=== PATIENT | female | born 1985 | race Two or more races ===

== ENCOUNTER 2024-06-23 00:02 | Inpatient (IN) | payer MEDICAID ==
[2024-06-23] VITALS (7 sets, daily range): BP systolic 99–104; BP diastolic 60–69; PULSE 16–102; RESP 14–80; TEMP 97.9–98.9; O2SAT 92–99
[~2024-06-23] VITALS: Ht 147.3 cm; Wt 73.9 kg
[2024-06-23 00:22] LABS: Basophils # (auto) 0.1 10 ^3/uL (0-0.2); Basophils % (auto) 1.2 % (0.0-2.0); Eosinophils # (auto) 0.4 10 ^3/uL (0-0.8); Eosinophils % (auto) 3.9 % (0.0-7.0); Hematocrit 42.4 % (36.0-46.0); Hemoglobin 14.7 g/dL (12.2-16.2); Lymphocytes % (auto) 29.2 % (10.0-50.0); Mean Corpuscular Hemoglobin 29.9 pg (28.0-32.0); Mean Corpuscular Hgb Conc. 34.6 g/dL (32.0-36.0); Mean Corpuscular Volume 86.4 fL (80.0-100.0); Monocytes # (auto) 0.7 10 ^3/uL (0-1.3); Monocytes % (auto) 6.5 % (0.0-12.0); Neutrophils # (auto) 6.1 10 ^3/uL (1.6-8.6); Neutrophils % (auto) 59.2 % (37.0-80.0); Nucleated Red Blood Cells % 0.1 %; Platelet Count (auto) 364 10^3/uL (140-450); Red Cell Distribution Width 13.7 % (11.8-14.3); White Blood Cell 10.3 10^3/uL (4.4-10.8)
[2024-06-23 00:34] LABS: Alanine Aminotransferase 13 U/L (7-40); Albumin 4.3 g/dL (3.2-4.8); Alkaline Phosphatase 81 U/L (46-116); Anion Gap 9 (5-15); Aspartate Aminotransferase 21 U/L (13-40); BUN/Creatinine Ratio 13.2 (10.0-20.0); Bilirubin, Total 0.3 mg/dL (0.2-1.0); Blood Urea Nitrogen 9 mg/dL (9-23); Calcium 9.9 mg/dL (8.7-10.4); Carbon Dioxide 26 mmol/L (20-31); Chloride 104 mmol/L (98-107); Glucose 97 mg/dL (74-106); Potassium 4.1 mmol/L (3.5-5.1); Sodium 139 mmol/L (136-145); Total Protein 7.3 g/dL (5.7-8.2)
--- NOTE | 2024-06-23 01:05 | ECG ---
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
--- NOTE | 2024-06-23 01:23 | DVH ---
CHEST RADIOGRAPH Indication: CP Technique: Single frontal view of the chest was obtained COMPARISON: None FINDINGS: Lines and Tubes: None Lungs: Clear Pleura: No effusion. No pneumothorax. Cardiomediastinal contours: Unremarkable Bones: Unremarkable IMPRESSION: 1. No acute disease.
--- NOTE | 2024-06-23 01:42 | ED.PDOC ---
History of Present Illness HPI Comments 39 y/o F presents with c/o left-sided chest pain that radiates to her left arm, today. Patient endorses on unprovoked onset of symptoms 6x months ago that has been ongoing since until it worsened, last night. She comments on, already, consulting wit her PCP regarding symptoms 1x week ago and has talked to a chemical laboratory tester and received an echocardiogram since. Patient reports no recent sick contact, travel, injuries, stressors, strenuous activities, or other associated symptoms or modifiers at this time. 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 Hx Family History Family History: Unknown Social History Smoker: Non-Smoker Alcohol: Denies ETOH Use Drugs: Denies Drug Use Lives In: Home Cardiovascular: reports: chest pain, left arm pain All Other Systems: Reviewed and Negative (negative unless otherwise stated above or in HPI) Physical Exam General Appearance: No Apparent Distress, Obese HEENT: Normal ENT Inspection, Pharynx Normal, TMs Normal Neck: Full Range of Motion, Non-Tender, Normal, Normal Inspection Respiratory: Chest Non-Tender, Lungs Clear, No Accessory Muscle Use, No Respiratory Distress, Normal Breath Sounds Cardiovascular: No Edema, No JVD, No Murmur, No Gallop, Normal Peripheral Pulses, Regular Rate/Rhythm Breast Exam: Deferred Gastrointestinal: No Organomegaly, Non Tender, No Pulsatile Mass, Normal Bowel Sounds, Soft Genitalia: Deferred Pelvic: Deferred Rectal: Deferred Extremities: No calf tenderness, Normal capillary refill, Normal inspection, Normal range of motion, Non-tender, No pedal edema Musculoskeletal : Apperance: Normal Neurologic: Alert, finger grip machine operator II-XII nml as Tested, No Motor Deficits, Normal Affect, Normal Mood, No Sensory Deficits Cerebellar Function: Normal Reflexes: Normal Skin: Dry, Normal Color, Warm Lymphatic: No Adenopathy Was a procedure done? Was a procedure done?: No EKG EKG #1: Pulse Rate (adult): 101 [place]: Normal Cardiac Rhythm: ST Block: None Hypertrophy: None ST: Normal EKG #2: Pulse Rate (adult): 78 [place]: Normal Cardiac Rhythm: NSR Block: None Hypertrophy: None ST: Normal Differential Dx Considerations may include: OK, PE, ACS, angina, anxiety, musculoskeletal pain, viral syndrome, costochondritis, pericarditis, gastritis, gastroenteritis X-Ray, Labs, Meds, VS Vital Signs Date Time Temp Pulse Resp B/P (MAP) Pulse Ox O2 Delivery O2 Flow Rate FiO2 06/23/24 01:57 82 14 99 Room Air* 0 21 06/23/24 01:55 98.1 82 14 94/65 (75) 99 98.1 06/23/24 01:42 78 06/23/24 01:04 78 06/23/24 00:14 98.0 79 18 109/66 (80) 96 06/23/24 00:10 101 Lab Test 06/23/24 01:14 06/23/24 00:08 Range/Units Troponin I High Sensitivity < 3 L < 3 L </=34 ng/L White Blood Count 10.3 4.4-10.8 10^3/uL Red Blood Count 4.90 4.0-5.20 10^6/uL Hemoglobin 14.7 12.2-16.2 g/dL Hematocrit 42.4 36.0-46.0 % Mean Corpuscular Volume 86.4 80.0-100.0 fL Mean Corpuscular Hemoglobin 29.9 28.0-32.0 pg Mean Corpuscular Hemoglobin Concent 34.6 32.0-36.0 g/dL Red Cell Distribution Width 13.7 11.8-14.3 % Platelet Count 364 140-450 10^3/uL Mean Platelet Volume 7.7 6.9-10.8 fL Neutrophils (%) (Auto) 59.2 37.0-80.0 % Lymphocytes (%) (Auto) 29.2 10.0-50.0 % Monocytes (%) (Auto) 6.5 0.0-12.0 % Eosinophils (%) (Auto) 3.9 0.0-7.0 % Basophils (%) (Auto) 1.2 0.0-2.0 % Neutrophils # (Auto) 6.1 1.6-8.6 10 ^3/uL Lymphocytes # (Auto) 3.0 0.4-5.4 10 ^3/uL Monocytes # (Auto) 0.7 0-1.3 10 ^3/uL Eosinophils # (Auto) 0.4 0-0.8 10 ^3/uL Basophils # (Auto) 0.1 0-0.2 10 ^3/uL Nucleated Red Blood Cells 0.1 % Sodium Level 139 136-145 mmol/L Potassium Level 4.1 3.5-5.1 mmol/L Chloride Level 104 98-107 mmol/L Carbon Dioxide Level 26 20-31 mmol/L Anion Gap 9 5-15 Blood Urea Nitrogen 9 9-23 mg/dL Creatinine 0.68 0.550-1.02 mg/dL Glomerular Filtration Rate Calc 114 >90 mL/min BUN/Creatinine Ratio 13.2 10.0-20.0 Serum Glucose 97 74-106 mg/dL Calcium Level 9.9 8.7-10.4 mg/dL Total Bilirubin 0.3 0.2-1.0 mg/dL Aspartate Amino Transferase (AST) 21 13-40 U/L Alanine Aminotransferase (ALT) 13 7-40 U/L Alkaline Phosphatase 81 46-116 U/L Total Protein 7.3 5.7-8.2 g/dL Albumin 4.3 3.2-4.8 g/dL Time of 1ST Reevaluation: 00:30 Reevaluation 1ST: Unchanged Patient Education/Counseling: Diagnosis, Treatment Family Education/Counseling: No Family Present Additional Information The following tests were ordered, and results were reviewed by me: CMP, CBC, troponin, EKG, CXR I reviewed and agreed with the following test results read by other providers: CXR I discussed treatment and results with medical personnel Departure 1 Departure Time of Disposition: 02:22 (Patient presented with chest pain that was concerning for possible STEMI, ACS, PE, Pneumonia, Muscle Strain, COPD, Dissection. Data: 1. I ordered and reviewed the result of at least 3 labs including a CBC, BMP, and Troponin. 2. I independently interpreted the following tests: EKG which shows normal sinus rhythm and Chest X-ray which shows a benign chest.Risk:This patient presented with a high risk of morbidity due to further diagnostic testing or treatment and may suffer from an acute cardiac or respiratory disorder. After review of all the data patient is unlikely to have a pe , dissection, and is low risk for acs. Patient is stable at this time.Workup so far is benign and patient will be discharged with outpatient followup. ) Impression: Primary Impression: Acute chest pain Disposition: HOME / SELF CARE / HOMELESS Condition: Stable Additional Instructions: You presented today with chest pain. Your workup today was benign including labs, troponin, EKG, chest x-ray. Your pain may be from musculoskeletal strain, acid reflux, anxiety, or many other factors. It is important to follow up with your regular doctor within 1 week. If your symptoms worsen or you have any other concerns please return to the emergency room. Critical Care Note Critical Care Time?: Yes Critical care comment: Acute chest pain Authorized and Performed by: Jayden Martínez MD Total critical care time: Approximately 36 minutes Due to a high probability of clinically significant, life threatening deterioration, the patient required my highest level of preparedness to intervene emergently and I personally spent this critical care time directly and personally managing the patient. This critical care time included obtaining a history; examining the patient; pulse oximetry; ordering and review of studies; arranging urgent treatment with development of a management plan; evaluation of patient's response to treatment; frequent reassessment; and, discussions with other providers. This critical care time was performed to assess and manage the high probability of imminent, life-threatening deterioration that could result in multi-organ failure. It was exclusive of separately billable procedures and treating other patients and teaching time. Please see my other sections and the rest of the note for further information on patient assessment and treatment. Stability Stability form required: No Heart Score Heart Score: Heart Score Response (Comments) Value History N/A 0 EKG Normal 0 Age <45 0 Risk Factors No known risk factors 0 Troponin Normal limit 0 Total 0 I personally scribed for JAYDEN MARTÍNEZ MD ([email or web address]) on 06/23/24 at 01:42. Electronically submitted by Elvis Morel ([email or web address]). JAYDEN MARTÍNEZ MD Jun 23, 2024 01:42
[2024-06-23] MEDS: ALBUTEROL SULF 2.5 MG/0.5ML(0.5%) NEB SOLN NEB ONE (03:00)
--- NOTE | 2024-06-23 03:12 | ECG ---
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
[2024-06-23] MEDS: KETOROLAC TROMETH 30 MG/ML 1ML VIAL IM ONE (03:19)
[2024-06-23] MEDS: ACETAMINOPHEN 325 MG TAB PO ONE (03:20)
[2024-06-23] MEDS: IPRATROPIUM BROM 0.5 MG/2.5ML INH SOL NEB ONE (04:11)
[2024-06-23] MEDS ORDERED: ACETAMINOPHEN 325 MG TAB PO PRN (05:15)
[2024-06-23] MEDS ORDERED: ONDANSETRON HCL 4 MG/2 ML VIAL IV PRN (05:15)
[2024-06-23] MEDS ORDERED: TEMAZEPAM 15 MG CAP PO PRN (05:15)
[2024-06-23] MEDS ORDERED: MORPHINE SULFATE INJ 2 MG/ml SYRG IV PRN (05:15)
--- NOTE | 2024-06-23 05:19 | DVHHP2 ---
History of Present Illness Reason for Visit: Chest pain History of Present Illness 39-year-old female presents for evaluation of chest pain. Patient reports a six-month history of having left-sided sharp chest pain. She states nothing makes it better or worse. She has been seen by her primary care provider with no definitive diagnosis. She also underwent a stress test on March of last year which she reports as being benign. Today she presents with no symptoms of the pain radiating to bilateral arms causing numbness. She denies shortness or breath, nausea or vomiting. No other acute complaints are reported. Past Medical History Denies Past Surgical History Denies Family History Noncontributory Smoke: No ALCOHOL: none Drugs: None Lives: with Family Review of Systems Review of Systems Review of systems are currently negative otherwise addressed in HPI. Allergies: Coded Allergies: NO KNOWN ALLERGIES (Unverified , 06/23/24) Exam Vital Signs Vital Signs Date Time Temp Pulse Resp B/P (MAP) Pulse Ox O2 Delivery O2 Flow Rate FiO2 06/23/24 04:23 97.7 97.7 06/23/24 04:17 80 18 104/73 (83) 06/23/24 04:16 100 Room Air* 0 21 Exam Gen: 39-year-old female in no apparent distress Skin: Warm, dry, normal color and texture, no rash. HEENT: Normocephalic atraumatic, mucous membranes moist and pink. Neck: Cervical and supraclavicular nodes normal without enlargement, trachea is midline, thyroid gland is normal without masses. Pulmonary: Clear to auscultation and percussion bilaterally. Cardiac: Regular rate and rhythm. No murmur Abdomen: Soft, nontender, nondistended, bowel sounds present all 4 quadrants, no guarding, no rigidity, no organomegaly. Extremities: No cyanosis, clubbing, no edema Neuro: Cranial nerves II through XII grossly intact, normal affect and speech, no focal motor deficits. Labs/Xrays ORDERING PHYSICIAN: ER PROCEDURE(s): CXR1 - CHEST XRAY 1 VIEW REASON: CP ORDER NUMBER(s): [id number], ACCESSION NUMBER(s): [id number] CHEST RADIOGRAPH Indication: CP Technique: Single frontal view of the chest was obtained COMPARISON: None FINDINGS: Lines and Tubes: None Lungs: Clear Pleura: No effusion. No pneumothorax. Cardiomediastinal contours: Unremarkable Bones: Unremarkable IMPRESSION: 1. No acute disease. Labs Test 06/23/24 01:14 06/23/24 00:08 Range/Units Troponin I High Sensitivity < 3 L </=34 ng/L White Blood Count 10.3 4.4-10.8 10^3/uL Red Blood Count 4.90 4.0-5.20 10^6/uL Hemoglobin 14.7 12.2-16.2 g/dL Hematocrit 42.4 36.0-46.0 % Mean Corpuscular Volume 86.4 80.0-100.0 fL Mean Corpuscular Hemoglobin 29.9 28.0-32.0 pg Mean Corpuscular Hemoglobin Concent 34.6 32.0-36.0 g/dL Red Cell Distribution Width 13.7 11.8-14.3 % Platelet Count 364 140-450 10^3/uL Mean Platelet Volume 7.7 6.9-10.8 fL Neutrophils (%) (Auto) 59.2 37.0-80.0 % Lymphocytes (%) (Auto) 29.2 10.0-50.0 % Monocytes (%) (Auto) 6.5 0.0-12.0 % Eosinophils (%) (Auto) 3.9 0.0-7.0 % Basophils (%) (Auto) 1.2 0.0-2.0 % Neutrophils # (Auto) 6.1 1.6-8.6 10 ^3/uL Lymphocytes # (Auto) 3.0 0.4-5.4 10 ^3/uL Monocytes # (Auto) 0.7 0-1.3 10 ^3/uL Eosinophils # (Auto) 0.4 0-0.8 10 ^3/uL Basophils # (Auto) 0.1 0-0.2 10 ^3/uL Nucleated Red Blood Cells 0.1 % Sodium Level 139 136-145 mmol/L Potassium Level 4.1 3.5-5.1 mmol/L Chloride Level 104 98-107 mmol/L Carbon Dioxide Level 26 20-31 mmol/L Anion Gap 9 5-15 Blood Urea Nitrogen 9 9-23 mg/dL Creatinine 0.68 0.550-1.02 mg/dL Glomerular Filtration Rate Calc 114 >90 mL/min BUN/Creatinine Ratio 13.2 10.0-20.0 Serum Glucose 97 74-106 mg/dL Calcium Level 9.9 8.7-10.4 mg/dL Total Bilirubin 0.3 0.2-1.0 mg/dL Aspartate Amino Transferase (AST) 21 13-40 U/L Alanine Aminotransferase (ALT) 13 7-40 U/L Alkaline Phosphatase 81 46-116 U/L Total Protein 7.3 5.7-8.2 g/dL Albumin 4.3 3.2-4.8 g/dL Assessment/Plan Assessment/Plan Assessment Chest pain, etiology undetermined Plan Admit the patient to telemetry to the hospitalist Cardiology consultation Echocardiogram pending Continue treatment per orders. Plan discussed with: Patient Date of Service: Jun 23, 2024 Billing Provider: BEKA POLANCO Common Visit Codes: [id number] INP/OBS CARE (HIGH) BEKA POLANCO Jun 23, 2024 05:19
[2024-06-23 06:06] LABS: Triglycerides 137 mg/dL (< 150)
[2024-06-23 06:08] LABS: Cholesterol 181 mg/dL (< 200); HDL Cholesterol 52 mg/dL (40-59)
[2024-06-23 06:11] LABS: LDL Cholesterol 120 mg/dL (< 100)
--- NOTE | 2024-06-23 08:12 | ECG ---
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
[2024-06-23] MEDS: ASPirin 81 mg TAB PO SCH (09:33)
--- NOTE | 2024-06-23 13:33 | DVHPN2 ---
Reviewed: Care Plan, H&P, Labs, Medications, Previous Orders, Radiology Changes from previous H/P or p: No Changes Objective Vitals Vital Signs Date Time Temp Pulse Resp B/P (MAP) Pulse Ox O2 Delivery O2 Flow Rate FiO2 06/23/24 11:43 98.5 68 16 101/60 (74) 96 98.5 06/23/24 07:51 Room Air* 0 21 Medications Current Medications Medications Dose Ordered Sig/Eric Route Start Time Stop Time Status Last Admin Dose Admin Aspirin 81 mg DAILY PO 06/23/24 10:00 06/23/24 09:33 81 MG Temazepam 15 mg QHSP PRN PO 06/23/24 05:15 Ondansetron HCl 4 mg Q4HP PRN IV 06/23/24 05:15 Acetaminophen 650 mg Q6HP PRN PO 06/23/24 05:15 Nitroglycerin 0.4 mg Q5MINP PRN SL 06/23/24 05:15 Morphine Sulfate 2 mg Q30M PRN IV 06/23/24 05:15 Laboratory Results Laboratory Tests 06/23/24 00:08 Chemistry Test 06/23/24 00:08 Albumin 4.3 g/dL (3.2-4.8) Calcium Level 9.9 mg/dL (8.7-10.4) Total Protein 7.3 g/dL (5.7-8.2) Lipid panel Test 06/23/24 05:27 Cholesterol Level 181 mg/dL (< 200) HDL Cholesterol 52 mg/dL (40-59) Triglycerides Level 137 mg/dL (< 150) LFT Test 06/23/24 00:08 Alanine Aminotransferase (ALT) 13 U/L (7-40) Alkaline Phosphatase 81 U/L (46-116) Aspartate Amino Transferase (AST) 21 U/L (13-40) Total Bilirubin 0.3 mg/dL (0.2-1.0) HgA1c, TSH Test 06/23/24 05:27 Thyroid Stimulating Hormone (TSH) 5.13 uIU/mL (0.55-4.78) H Labs and/or images reviewed: Labs reviewed by me, Image(s) reviewed by me Assessment/Plan Assessment/Plan Chest Pain troponin negative x3 probably noncardiac chest pain, will check urine drug screen Hypothyroidism new TSH 5.13: Synthroid 112 mcg a day Plan discussed with: Patient My Orders Orders - FU,JOEL M MD Procedure Category Date Status Time Drug Screen LAB 06/23/24 Logged 13:28 Communication Order ORDERS 06/23/24 Transmitted 13:28 * Cardiology Consult CONS 06/23/24 Transmitted 13:30 Date of Service: Jun 23, 2024 Billing Provider: JOEL FU MD Common Visit Codes: [id number] INP/OBS CARE(HIGH) JOEL FU MD Jun 23, 2024 13:33
--- NOTE | 2024-06-23 14:00 | DVHSR ---
APPROVED REPORT EXAM: Two-dimensional and M-mode echocardiogram with Doppler and color Doppler. INDICATION Tachycardia RISK FACTORS Height: 5'7", Weight: 111 DIMENSIONS LVDd4.9 (3.8-5.7cm)LA (2D)3.9 (1.9-4.0cm)Aortic Root (2.0-3.7cm) LVDs3.3 (2.5-4.0cm)LA (MM) (1.9-4.0cm)Aortic Cusp Exc (1.5-2.0cm) EF (%) 60.0 (55-70%)Rt. Atrium3.3 (1.9-4.0cm)Asc. Aorta cm Mitral Valve MitralMitral Stenosis E/A ratio0.02D MVAcm2 LEFT VENTRICLE The left ventricle is normal size. There is normal left ventricular wall thickness. The left ventricle is normal in structure and function. Left ventricle systolic function is normal. The Ejection Fraction is 65-70%. No regional wall motion abnormalities noted. RIGHT VENTRICLE The right ventricle is normal size. There is normal right ventricular wall thickness. The right ventricular systolic function is normal. ATRIA The left atrium size is normal. The right atrium size is normal. The interatrial septum is intact with no evidence for an atrial septal defect. MITRAL VALVE The mitral valve is normal in structure and function. There is no evidence of mitral valve prolapse. There is no mitral valve stenosis. There is no mitral valve regurgitation noted. PULMONIC VALVE The pulmonary valve is normal in structure and function. There is no pulmonic valvular regurgitation. There is no pulmonic valvular stenosis. TRICUSPID VALVE The tricuspid valve is normal in structure and function. There is no tricuspid valve regurgitation noted. There is no tricuspid valve prolapse or vegetation. There is no tricuspid valve stenosis. AORTIC VALVE The aortic valve is normal in structure and function. No aortic regurgitation is present. There is no aortic valvular stenosis. There is no aortic valvular vegetation. GREAT VESSELS The aortic root is normal in size. Other Information Quality : Technically LimitedRhythm : Technically limited study due to body habitus and patient position. Conclusion The left ventricle is normal size. The left ventricle is normal in structure and function. Left ventricle systolic function is normal. The Ejection Fraction is 65-70%. There is no gross valvuar pathology. There is no pericardial effusion.
[2024-06-23 15:27] LABS: Amphetamine Screen, Urine Neg (NEGATIVE); Barbiturate Scree,Urine Neg (NEGATIVE); Benzodiazephine Screen, Urine Neg (NEGATIVE); Cannabinoid Screen, Urine Neg (NEGATIVE); Cocaine Screen, Urine Neg (NEGATIVE); Opiate Scree,Urine Neg (NEGATIVE); Phencyclidine Screen, Urine Neg (NEGATIVE)
--- NOTE | 2024-06-23 16:37 | DVHINCON2 ---
Date Seen: Jun 23, 2024 Referring Physician MD Colin Reason for Consultation Chest pain History of Present Illness This is a 39-year-old female who presented to the emergency room with a chief complaint of chest pain for seven months and worsened upon day of admission. Describes her chest pain as left-sided, sharp in nature, non provoked, intermittent, and radiating to bilateral upper extremities and left lower ex tremity described as a numbness sensation. The patient follows up in the outpatient setting with Dr. Wagner on 02/2024. At that time she underwent a transthoracic echocardiogram and was told she had a leaky valve. Multiple 12 lead electrocardiogram were obtained revealing a sinus rhythm. Serial troponin levels are negative. The patient was referred back to Dr. Wagner nevertheless she requested a second opinion. Significant medical history includes diverticulosis and a recent miscarriage on 06/08/24. Past Medical History Past medical history reviewed. No other significant than mentioned above. Past Surgical History Colon surgery Family History: Diabetes mellitus G8 MOTHER Hypercholesterolemia G8 FATHER Hypertension G8 MOTHER Family History Family history reviewed. Not significant for CV disease. Social History Denies the use of illicit drugs, alcohol, or tobacco use. Allergies: Coded Allergies: NO KNOWN ALLERGIES (Unverified , 06/23/24) Home Meds No Active Prescriptions or Reported Meds Home Meds Home medications reviewed. Current Medications Current Medications Medications (Trade) Dose Ordered Sig/Eric Route PRN Reason Start Time Stop Time Status Last Admin Aspirin 81 mg DAILY PO 06/23/24 10:00 06/23/24 09:33 Temazepam (Restoril) 15 mg QHSP PRN PO FOR INSOMNIA 06/23/24 05:15 Ondansetron HCl (Zofran) 4 mg Q4HP PRN IV NAUSEA / VOMITING 06/23/24 05:15 Acetaminophen (Tylenol Tablet) 650 mg Q6HP PRN PO PAIN SCALE 1-3 OR TEMP>100.4 06/23/24 05:15 Nitroglycerin (Ntrostat Sublingual) 0.4 mg Q5MINP PRN SL FOR CHEST PAIN 06/23/24 05:15 Morphine Sulfate 2 mg Q30M PRN IV FOR CHEST PAIN 06/23/24 05:15 Levothyroxine Sodium (Synthroid Tablet) 112 mcg QAM@0600 PO 06/24/24 06:00 Review of Systems Constitutional: No symptom reported Ears, Nose, & Throat: No symptom reported Eyes: No symptom reported Neurological: No symptoms reported Pulmonary/Respiratory: No symptom reported Cardiovascular: Chest pain Gastrointestinal: No symptom reported Genitourinary: No symptom reported Musculoskeletal: No symptom reported Skin: No symptom reported Psychiatric: No symptom reported Endocrine: No symptom reported Hemotologic/Lymphatic: No symptom reported Vital Signs Vital Signs Date Time Temp Pulse Resp B/P (MAP) Pulse Ox O2 Delivery O2 Flow Rate FiO2 06/23/24 11:43 98.5 68 16 101/60 (74) 96 98.5 06/23/24 07:51 Room Air* 0 21 Physical Exam General Appearance: Cooperative. Well developed. Well nourished. In no acute distress Head Exam: Normal inspection Neck Exam: Normal inspection. Non-tender. Normal alignment Pulmonary/Respiratory: Chest non-tender. Clear bilateral breath sounds Cardiovascular/Chest: Regular rate and rhythm. S1, S2. Sinus rhythm. No murmurs. No JVD. Peripheral Pulses: 2+ Radial (R). 2+ Radial (L). 2+ Pedal (R). 2+ Pedal (L) Abdominal Exam: Normal bowel sounds. Soft. Nontender. No hepatospenomegaly. No masses Ankle Exam: Negative ankle edema Lower extremities: Negative lower extremity edema Neuro/Mental Status: A&O x4. Coherent Thoughts/Psych: Normal thought pattern. Appropriate mood and affect. Good judgement and insight Appearance: In no acute distress Skin Exam: Normal inspection. Normal color. Warm. Dry Labs/Diagnostic Data Labs Test 06/23/24 14:30 06/23/24 05:27 06/23/24 01:14 06/23/24 00:08 Range/Units Urine Opiates Screen Neg NEGATIVE Urine Fentanyl Screen Neg NEGATIVE Urine Barbiturates Screen Neg NEGATIVE Urine Phencyclidine Screen Neg NEGATIVE Urine Amphetamines Screen Neg NEGATIVE Urine Benzodiazepines Screen Neg NEGATIVE Urine Cocaine Screen Neg NEGATIVE Urine Cannabinoids Screen Neg NEGATIVE Triglycerides Level 137 < 150 mg/dL Cholesterol Level 181 < 200 mg/dL LDL Cholesterol 120 H < 100 mg/dL HDL Cholesterol 52 40-59 mg/dL Thyroid Stimulating Hormone (TSH) 5.13 H 0.55-4.78 uIU/mL Troponin I High Sensitivity < 3 L </=34 ng/L White Blood Count 10.3 4.4-10.8 10^3/uL Red Blood Count 4.90 4.0-5.20 10^6/uL Hemoglobin 14.7 12.2-16.2 g/dL Hematocrit 42.4 36.0-46.0 % Mean Corpuscular Volume 86.4 80.0-100.0 fL Mean Corpuscular Hemoglobin 29.9 28.0-32.0 pg Mean Corpuscular Hemoglobin Concent 34.6 32.0-36.0 g/dL Red Cell Distribution Width 13.7 11.8-14.3 % Platelet Count 364 140-450 10^3/uL Mean Platelet Volume 7.7 6.9-10.8 fL Neutrophils (%) (Auto) 59.2 37.0-80.0 % Lymphocytes (%) (Auto) 29.2 10.0-50.0 % Monocytes (%) (Auto) 6.5 0.0-12.0 % Eosinophils (%) (Auto) 3.9 0.0-7.0 % Basophils (%) (Auto) 1.2 0.0-2.0 % Neutrophils # (Auto) 6.1 1.6-8.6 10 ^3/uL Lymphocytes # (Auto) 3.0 0.4-5.4 10 ^3/uL Monocytes # (Auto) 0.7 0-1.3 10 ^3/uL Eosinophils # (Auto) 0.4 0-0.8 10 ^3/uL Basophils # (Auto) 0.1 0-0.2 10 ^3/uL Nucleated Red Blood Cells 0.1 % Sodium Level 139 136-145 mmol/L Potassium Level 4.1 3.5-5.1 mmol/L Chloride Level 104 98-107 mmol/L Carbon Dioxide Level 26 20-31 mmol/L Anion Gap 9 5-15 Blood Urea Nitrogen 9 9-23 mg/dL Creatinine 0.68 0.550-1.02 mg/dL Glomerular Filtration Rate Calc 114 >90 mL/min BUN/Creatinine Ratio 13.2 10.0-20.0 Serum Glucose 97 74-106 mg/dL Calcium Level 9.9 8.7-10.4 mg/dL Total Bilirubin 0.3 0.2-1.0 mg/dL Aspartate Amino Transferase (AST) 21 13-40 U/L Alanine Aminotransferase (ALT) 13 7-40 U/L Alkaline Phosphatase 81 46-116 U/L Total Protein 7.3 5.7-8.2 g/dL Albumin 4.3 3.2-4.8 g/dL Assessment Noncardiac chest pain Dyslipidemia, newly diagnosed Recent miscarriage Obesity Plan/Recommendation (Dr. Hinds) The patient underwent a transthoracic echocardiogram revealing an EF of 65 70% with no gross valvular pathology. Multiple 12 lead electrocardiogram revealed a sinus rhythm without evidence of ST segment changes. Serial troponin levels are negative. She also presents with a Heart Score of 1 point placing her at a low- risk for major cardiac events. Noncardiac chest pain etiologies can include musculoskeletal, GERD, and/or anxiety. There is no further cardiac workup indicated at this time. Patient to follow-up with Dr. Wagner as scheduled. Kindly call if in need to re-consult. Thank you for allowing us to participate in this patient's care. This medical document was created using an electronic medical record system with voice recognition software and computerized dictation system. Although this document has been carefully reviewed, there might still be some phonetic and typographical errors. Occasional wrong-word or ``sound-alike substitutions may have occurred due to the inherent limitations of voice recognition software. These areas are purely typographical due to imperfections of the software programs and do not reflect any compromise in the patient's medical care. Please read the chart carefully and recognize, using context, where these substitutions have occurred. Plan discussed with: Patient, Other NYHA Physical activity limitations: NA Date of Service: Jun 23, 2024 Billing Provider: CHUCK TRIANA Cardiology Common Codes: [id number] INP/OBS CARE (High) CHUCK TRIANA Jun 23, 2024 16:37
--- NOTE | 2024-06-23 19:27 | DVHINCON2 ---
DATE OF CONSULTATION: 06/23/2024 REFERRING PHYSICIAN: Dr. Renae. CONSULTING PHYSICIAN: Dr. Wagner. INDICATION: Chest pain. HISTORY OF PRESENT ILLNESS: The patient is a 39-year-old female with no significant past medical history. She presented to the hospital with complaint chest pain on and off, described the pain as a left sided sharp, no radiation, decided to come to the Emergency Room. CA has been ruled out, serial negative troponin. Of note, the patient had a recent outpatient stress test, which was unremarkable. PAST MEDICAL HISTORY: Diverticulitis. PAST SURGICAL HISTORY: None. ALLERGIES: No known drug allergies. MEDICATIONS: None. PHYSICAL EXAMINATION: GENERAL: Alert and awake, in no form of cardiopulmonary distress. VITAL SIGNS: Blood pressure 101/60, pulse 68 per minute, saturation 96%. HEENT: No carotid bruits. No jugular venous distention. CHEST: Bilateral air entry. CARDIOVASCULAR: Submucosal and palpable. Normal S1, S2. Regular rate and rhythm. No appreciable gallop or rubs. EXTREMITIES: No peripheral edema. DIAGNOSTIC DATA: EKG shows normal sinus rhythm, no acute ischemic change. Blood test troponin negative x2. CBC is normal. Sodium 139, potassium 4.1, creatinine is 0.6. ASSESSMENT: * Chest pain, atypical, CA was ruled out. * Serial negative troponin, doubt acute coronary syndrome. RECOMMENDATIONS: * Continue aspirin for now. * We will review echo. * If echo unremarkable, no further inpatient cardiac workup indicated. The patient is stable for discharge from cardiac standpoint. Thank you for allowing me to participate in the care of this patient. MD LORNA Small/MINDA TID: [id number] RECEIPT: [id number]
[2024-06-23] MEDS: NITROGLYCERIN 0.4 MG SL TAB SL PRN (22:52)
[2024-06-24 01:00] VITALS: BP 106/69; PULSE 77; RESP 16; TEMP 98.5; O2SAT 99
[2024-06-24 05:00] VITALS: BP 107/62; PULSE 72; RESP 15; TEMP 97.9; O2SAT 98
[2024-06-24] MEDS: LEVOTHYROXINE SODIUM 112 MCG TAB PO SCH (05:51)
[2024-06-24 07:48] LABS: Chloride 104 mmol/L (98-107); Potassium 4.1 mmol/L (3.5-5.1)
[2024-06-24 07:49] LABS: Anion Gap 7 (5-15); Carbon Dioxide 25 mmol/L (20-31)
[2024-06-24 07:50] LABS: Calcium 9.3 mg/dL (8.7-10.4)
[2024-06-24 07:54] LABS: BUN/Creatinine Ratio 14.9 (10.0-20.0); Blood Urea Nitrogen 10 mg/dL (9-23); Glucose 88 mg/dL (74-106)
[2024-06-24 07:56] LABS: Sodium 136 mmol/L (136-145)
[2024-06-24 08:00] VITALS: PULSE 76
[2024-06-24 08:40] VITALS: BP 101/57; PULSE 87; RESP 18; TEMP 98.1; O2SAT 100
--- NOTE | 2024-06-24 10:36 | DVH ---
INDICATION: BLEEDING TECHNIQUE: Multiple real-time grayscale transabdominal sonographic images along with color and duplex Doppler of the uterus and ovaries were obtained. COMPARISON: none FINDINGS: The uterus measures 11 x 4 x 6 cm. The endometrial stripe measures 0.1 cm. The rig ht ovary measures 4 x 4 x 4 cm. 4cm right ovarian cyst. The left ovary measures 6 x 4 x 4 cm. 5 cm left ovarian cyst. Subsequent color and duplex Doppler interrogation of the ovaries demonstrated symmetric vascular flow to both ovaries, though this does not exclude the possibility of torsion due to the dual blood suppl y. IMPRESSION: 1. Grossly unremarkable pelvic ultrasound.
--- NOTE | 2024-06-24 11:00 | DVHINCON2 ---
REASON FOR CONSULTATION: Status post miscarriage per patient, needs evaluation. HISTORY OF PRESENT ILLNESS: The patient is a 39-year-old 9, para 2-0-7-2, admitted for evaluation of chest pain. The patient gives a 6-month history of left-sided chest pain and has not gotten better. She states she had her last Pap in 10/2023. She has extensive history of diverticulitis for which she underwent partial colectomy. She has had 7 miscarriages. Her last miscarriage was 06/08 and she is not currently bleeding heavy or bleeding at all. PAST MEDICAL HISTORY: Diverticulitis. PAST SURGICAL HISTORY: Colectomy. SOCIAL HISTORY: None. FAMILY HISTORY: None. OBSTETRIC AND GYNECOLOGIC HISTORY: Two normal vaginal deliveries, 7 miscarriages. REVIEW OF SYSTEMS: Consistent with HPI. PHYSICAL EXAMINATION: VITAL SIGNS: Stable, afebrile. HEENT: Within normal limits. CARDIOVASCULAR: Regular rate and rhythm. LUNGS: Clear to auscultation. BREASTS: Symmetrical. No masses. ABDOMEN: Soft, nontender. PELVIC: External genitalia within normal limits. Vagina normal. Cervix grossly normal. Uterus is 8-week size. Adnexa nonpalpable. EXTREMITIES: No clubbing, cyanosis or edema. IMPRESSION: * Status post spontaneous per patient's history. * History of habitual . PLAN: Recommend beta hCG quant, ultrasound of pelvis. The patient appears to have no issues at this point. Follow up outpatient. The patient was given business card to follow up after discharge. We will sign off. Thank you very much for this consultation. DO DAMION Pepe TID: [id number] RECEIPT: [id number]
--- NOTE | 2024-06-24 11:58 | DVHPN2 ---
Reviewed: Care Plan, H&P, Labs, Medications, Previous Orders, Radiology Changes from previous H/P or p: No Changes Objective Vitals Vital Signs Date Time Temp Pulse Resp B/P (MAP) Pulse Ox O2 Delivery O2 Flow Rate FiO2 06/24/24 08:40 98.1 87 18 101/57 (72) 100 98.1 06/23/24 07:51 Room Air* 0 21 Intake/Output Intake and Output 06/24/24 07:00 Intake Total 950 ml Output Total 600 ml Balance 350 ml Intake Oral 950 ml Output Urine Total 600 ml # Voids 1 Medications Current Medications Medications Dose Ordered Sig/Eric Route Start Time Stop Time Status Last Admin Dose Admin Aspirin 81 mg DAILY PO 06/23/24 10:00 06/24/24 09:41 81 MG Temazepam 15 mg QHSP PRN PO 06/23/24 05:15 Ondansetron HCl 4 mg Q4HP PRN IV 06/23/24 05:15 Acetaminophen 650 mg Q6HP PRN PO 06/23/24 05:15 Nitroglycerin 0.4 mg Q5MINP PRN SL 06/23/24 05:15 06/23/24 22:57 0.4 MG Morphine Sulfate 2 mg Q30M PRN IV 06/23/24 05:15 Levothyroxine Sodium 112 mcg QAM@0600 PO 06/24/24 06:00 06/24/24 05:51 112 MCG Laboratory Results Laboratory Tests 06/23/24 00:08 06/24/24 07:26 Chemistry Test 06/24/24 07:26 Calcium Level 9.3 mg/dL (8.7-10.4) Labs and/or images reviewed: Labs reviewed by me, Image(s) reviewed by me Assessment/Plan Assessment/Plan Noncardiac Chest Pain troponin negative x3 urine drug screen negative echocardiogram 65% percent ejection fraction, cardiology consult appreciated, cleared for discharge by Cardiology Hypothyroidism new TSH 5.13: Synthroid 112 mcg a day Anxiety History of recent spontaneous , seen by Ob Dr. Miller, pelvic ultrasound negative advised outpatient follow up Plan discussed with: Patient My Orders Orders - JOEL FU MD Procedure Category Date Status Time Communication Order ORDERS 06/23/24 Transmitted 13:28 * Cardiology Consult CONS 06/23/24 Transmitted 13:30 Levothyroxine Tablet PHA 06/24/24 In Process (Synthroid Tablet) 06:00 * Light Rail Operator Consultation CONS 06/23/24 Transmitted 14:21 Pelvic US 06/24/24 Resulted 09:21 Date of Service: Jun 24, 2024 Billing Provider: JOEL FU MD Common Visit Codes: [id number] INP/OBS CARE(HIGH) JOEL FU MD Jun 24, 2024 11:58
[2024-06-24 13:00] VITALS: BP 102/64; PULSE 84; RESP 18; TEMP 98.8; O2SAT 98
[2024-06-24] MEDS ORDERED: LEVO-849 PO (13:11)
--- NOTE | 2024-06-24 13:16 | DVHPN2 ---
Reviewed: Care Plan, H&P, Labs, Medications, Previous Orders, Radiology Changes from previous H/P or p: No Changes Objective Vitals Vital Signs Date Time Temp Pulse Resp B/P (MAP) Pulse Ox O2 Delivery O2 Flow Rate FiO2 06/24/24 08:40 98.1 87 18 101/57 (72) 100 98.1 06/23/24 07:51 Room Air* 0 21 Intake/Output Intake and Output 06/24/24 07:00 Intake Total 950 ml Output Total 600 ml Balance 350 ml Intake Oral 950 ml Output Urine Total 600 ml # Voids 1 Medications Current Medications Medications Dose Ordered Sig/Eric Route Start Time Stop Time Status Last Admin Dose Admin Aspirin 81 mg DAILY PO 06/23/24 10:00 06/24/24 09:41 81 MG Temazepam 15 mg QHSP PRN PO 06/23/24 05:15 Ondansetron HCl 4 mg Q4HP PRN IV 06/23/24 05:15 Acetaminophen 650 mg Q6HP PRN PO 06/23/24 05:15 Nitroglycerin 0.4 mg Q5MINP PRN SL 06/23/24 05:15 06/23/24 22:57 0.4 MG Morphine Sulfate 2 mg Q30M PRN IV 06/23/24 05:15 Levothyroxine Sodium 112 mcg QAM@0600 PO 06/24/24 06:00 06/24/24 05:51 112 MCG Laboratory Results Laboratory Tests 06/23/24 00:08 06/24/24 07:26 Chemistry Test 06/24/24 07:26 Calcium Level 9.3 mg/dL (8.7-10.4) Assessment/Plan Assessment/Plan Noncardiac Chest Pain troponin negative x3 urine drug screen negative echocardiogram 65% percent ejection fraction, cardiology consult appreciated, cleared for discharge by Cardiology Hypothyroidism new TSH 5.13: Synthroid 112 mcg a day Anxiety History of recent spontaneous , seen by Ob Dr. Miller, pelvic ultrasound negative advised outpatient follow up Plan discussed with: Patient My Orders Orders - JOEL FU MD Procedure Category Date Status Time Communication Order ORDERS 06/23/24 Transmitted 13:28 * Cardiology Consult CONS 06/23/24 Transmitted 13:30 Levothyroxine Tablet PHA 06/24/24 In Process (Synthroid Tablet) 06:00 * Home Care Provider Consultation CONS 06/23/24 Transmitted 14:21 Pelvic US 06/24/24 Resulted 09:21 Discharge DISCHARGE 06/24/24 Transmitted 11:58 Date of Service: Jun 24, 2024 Billing Provider: JOEL FU MD Common Visit Codes: [id number] INP/OBS CARE(HIGH) JOEL FU MD Jun 24, 2024 13:16
--- NOTE | 2024-06-24 13:19 | DVHDS2 ---
Discharge Summary Date of Admission Jun 23, 2024 at 05:12 Date of Discharge: Jun 24, 2024 Admitting Diagnosis Chest pain Wounds: None Labs/Diagnostic Data: Laboratory Results Test 06/24/24 07:26 06/24/24 05:26 06/23/24 14:30 06/23/24 05:27 Sodium Level 136 mmol/L (136-145) Potassium Level 4.1 mmol/L (3.5-5.1) Chloride Level 104 mmol/L (98-107) Carbon Dioxide Level 25 mmol/L (20-31) Anion Gap 7 (5-15) Blood Urea Nitrogen 10 mg/dL (9-23) Creatinine 0.67 mg/dL (0.550-1.02) Glomerular Filtration Rate Calc 114 mL/min (>90) BUN/Creatinine Ratio 14.9 (10.0-20.0) Serum Glucose 88 mg/dL (74-106) Calcium Level 9.3 mg/dL (8.7-10.4) Beta HCG, Quantitative 3.3 mIU/mL (1.5-4.2) Urine Opiates Screen Neg (NEGATIVE) Urine Fentanyl Screen Neg (NEGATIVE) Urine Barbiturates Screen Neg (NEGATIVE) Urine Phencyclidine Screen Neg (NEGATIVE) Urine Amphetamines Screen Neg (NEGATIVE) Urine Benzodiazepines Screen Neg (NEGATIVE) Urine Cocaine Screen Neg (NEGATIVE) Urine Cannabinoids Screen Neg (NEGATIVE) Triglycerides Level 137 mg/dL (< 150) Cholesterol Level 181 mg/dL (< 200) LDL Cholesterol 120 mg/dL (< 100) HDL Cholesterol 52 mg/dL (40-59) Thyroid Stimulating Hormone (TSH) 5.13 uIU/mL (0.55-4.78) Test 06/23/24 01:14 06/23/24 00:08 Troponin I High Sensitivity < 3 ng/L (</=34) White Blood Count 10.3 10^3/uL (4.4-10.8) Red Blood Count 4.90 10^6/uL (4.0-5.20) Hemoglobin 14.7 g/dL (12.2-16.2) Hematocrit 42.4 % (36.0-46.0) Mean Corpuscular Volume 86.4 fL (80.0-100.0) Mean Corpuscular Hemoglobin 29.9 pg (28.0-32.0) Mean Corpuscular Hemoglobin Concent 34.6 g/dL (32.0-36.0) Red Cell Distribution Width 13.7 % (11.8-14.3) Platelet Count 364 10^3/uL (140-450) Mean Platelet Volume 7.7 fL (6.9-10.8) Neutrophils (%) (Auto) 59.2 % (37.0-80.0) Lymphocytes (%) (Auto) 29.2 % (10.0-50.0) Monocytes (%) (Auto) 6.5 % (0.0-12.0) Eosinophils (%) (Auto) 3.9 % (0.0-7.0) Basophils (%) (Auto) 1.2 % (0.0-2.0) Neutrophils # (Auto) 6.1 10 ^3/uL (1.6-8.6) Lymphocytes # (Auto) 3.0 10 ^3/uL (0.4-5.4) Monocytes # (Auto) 0.7 10 ^3/uL (0-1.3) Eosinophils # (Auto) 0.4 10 ^3/uL (0-0.8) Basophils # (Auto) 0.1 10 ^3/uL (0-0.2) Nucleated Red Blood Cells 0.1 % Total Bilirubin 0.3 mg/dL (0.2-1.0) Aspartate Amino Transferase (AST) 21 U/L (13-40) Alanine Aminotransferase (ALT) 13 U/L (7-40) Alkaline Phosphatase 81 U/L (46-116) Total Protein 7.3 g/dL (5.7-8.2) Albumin 4.3 g/dL (3.2-4.8) Other Laboratory Tests 06/24/24 07:26 06/23/24 00:08 Brief Hx & Hospital Course: 39-year-old female with no previous medical history came in complaining of chest pain. Troponin negative x3 urine drug screen is negative echo 65 percent ejection fraction cardiology consult advised noncardiac chest pain TSH 5.13 new diagnosis hypothyroidism prescribed with Synthroid history of recent spontaneous seen by OBGYN Dr. Miller. pelvic ultrasound negative negative advised outpatient follow up discharged home . Prescription for Synthroid for hypothyroidism. Consults/Reason for consult Cardiology OBGYN Operations or Procedures Pelvic cultures Condition at Discharge: Fair Final Diagnosis/Problems List Noncardiac Chest Pain troponin negative x3 urine drug screen negative echocardiogram 65% percent ejection fraction, cardiology consult appreciated, cleared for discharge by Cardiology Hypothyroidism new TSH 5.13: Synthroid 112 mcg a day Anxiety History of recent spontaneous , seen by Ob Dr. Miller, pelvic ultrasound negative advised outpatient follow up Discharge Disposition: Home Discharge Instruct/Medications Diet: Regular Activity: Light activity Follow Up/Referral: Follow up with the primary Dr Follow up with the Ob Dr. Miller Medications: Synthroid 112 mcg a day Transmitted to pharmacy 35 (Time taken for discharge summary 35 minutes) Discharge Statement: "Patient was advised to return to the ER or call 911 if any headaches, dizziness, shortness of breath, chest pain, abdominal pain, bleeding, fevers, or worsening of medical condition. Patient was counseled about treatment plan, medications, possible side effects, patientverbalized understanding. All questions were answered to the best of my ability. This discharge took greater then 30 minutes in planning, reviewing documentation, counseling the patient, and discussing with other team members." ASSESSMENT ASSESSMENT Hospital Course Improved Assessment Noncardiac Chest Pain troponin negative x3 urine drug screen negative echocardiogram 65% percent ejection fraction, cardiology consult appreciated, cleared for discharge by Cardiology Hypothyroidism new TSH 5.13: Synthroid 112 mcg a day Anxiety History of recent spontaneous , seen by Ob Dr. Miller, pelvic ultrasound negative advised outpatient follow up Date of Service: Jun 24, 2024 Billing Provider: JOEL FU MD Common Visit Codes: [id number] DISCH DAY >30min JOEL FU MD Jun 24, 2024 13:19
--- NOTE | 2024-06-24 16:52 | ECG ---
[facility] Test Date: 2024-06-23 Test Time: 22:51:20 Pat Name: NESTOR ENG Department: Room: 0296T B Gender: F Conference Service Coordinator: JENIFER : 1985 Requested By: JOEL FU Order Number: [id number] Reading MD: Pawan Reynoso Measurements Intervals [place] Rate: 79 P: 50 CT: 144 QRS: 14 QRSD: 92 T: 25 QT: 378 QTc: 434 Interpretive Statements Sinus rhythm Electronically Signed On 06-25-2024 8:49:35 PST by Pawan Reynoso Please click the below link to view image of tracing.
== END 2024-06-24 15:22 | disposition home or self-care (01) | DRG 203 ==
LOC: ER 00:02 → TELE 05:12 → TELE-WESTW 22:00
PROVIDERS: ADMIT Internal Medicine; ATTEND Family Medicine
DX: R07.89 Other chest pain (principal); E03.9 Hypothyroidism, unspecified; E78.5 Hyperlipidemia, unspecified; E66.9 Obesity, unspecified; F41.9 Anxiety disorder, unspecified; Z82.49 Family history of ischemic heart disease and other diseases of the circulatory system; Z83.3 Family history of diabetes mellitus; Z90.49 Acquired absence of other specified parts of digestive tract; Z79.899 Other long term (current) drug therapy; Z68.35 Body mass index [BMI] 35.0-35.9, adult
CPT/HCPCS: 36415; 71045; 76856; 80048; 80053; 80061; 80307; 84443; 84484; 84702; 85025; 93005; 93306; 94640; 96372; 99291; G0378; J1885